=== PATIENT | female | born 1950 | race Caucasian/White ===

== ENCOUNTER 2021-06-17 16:26 | Emergency (ER) | payer BC, MEDICARE, OTHER ==
[2021-06-17 18:01] LABS: ANION GAP 12.8 mmol/L (5-15); CHLORIDE,CL 103 mmol/L (98-107); SODIUM,NA 140 mmol/L (136-145)
== END 2021-06-17 18:53 | disposition home or self-care (01) ==
LOC: KA.ED 16:26
DX: F41.9 Anxiety disorder, unspecified (principal); I10 Essential (primary) hypertension; Z79.82 Long term (current) use of aspirin; Z79.01 Long term (current) use of anticoagulants; Z79.899 Other long term (current) drug therapy
CPT/HCPCS: 36415; 70450; 80053; 81001; 85025; 85610; 99284; 99284-25

== ENCOUNTER 2021-08-18 14:30 | Inpatient (IN) | payer BC, MEDICARE, OTHER ==
[2021-08-18] MEDS ORDERED: Diltiazem 25 MG/5 ML SDV IVPUSH ONE (14:42)
[2021-08-18] MEDS ORDERED: Sodium Chloride 0.9% 1,000 ML IV SCH (14:45)
[2021-08-18 15:13] LABS: ANION GAP 11.7 mmol/L (5-15)
[2021-08-18] MEDS ORDERED: Sodium Chloride 0.9% 10 ML Syringe FLUSH PRN (15:53)
[2021-08-18] MEDS ORDERED: Acetaminophen 325 MG Tab PO PRN (17:45)
[2021-08-18] MEDS ORDERED: Nitroglycerin 0.4 MG Tab.SL SL PRN (18:00)
[2021-08-18] MEDS ORDERED: EPINEPHrine 1:10,000 1 MG/10 ML Syringe IVPUSH PRN (18:00)
[2021-08-18] MEDS ORDERED: Atropine 0.1 MG/ML 10 ML Syringe IVPUSH PRN (18:00)
[2021-08-18] MEDS ORDERED: Lidocaine 2% 100 MG/5 ML Syringe IVPUSH PRN (18:00)
[2021-08-18] MEDS ORDERED: Metoprolol Succinate 25 MG Tab.ER PO SCH (21:00)
[2021-08-18] MEDS ORDERED: Warfarin 5 MG Tab PO SCH (22:00)
[2021-08-18] MEDS ORDERED: Simvastatin 20 MG Tab PO SCH (22:00)
[2021-08-19] MEDS ORDERED: Metoprolol Tartrate 50 MG Tab PO ONE (01:21)
[2021-08-19] MEDS ORDERED: Metoprolol Tartrate 50 MG Tab ONE (01:28)
[2021-08-19] MEDS ORDERED: WARFARIN 5 MG PO SCH ×2 (08:05→22:00)
[2021-08-19] MEDS ORDERED: LISINOPRIL 2.5 MG PO SCH (09:00)
[2021-08-19] MEDS ORDERED: Metoprolol Succinate 50 MG Tab.ER - PTOM PO SCH (09:00)
[2021-08-19] MEDS ORDERED: Non-Formulary Medication 1 Each (Febuxostat [Febuxostat] 40 MG Tablet) PO SCH (09:00)
[2021-08-19] MEDS: Aspirin 81 MG Tab.Chew PO SCH (09:56)
[2021-08-19] MEDS ORDERED: Furosemide 40 MG Tab PO SCH (10:00)
[2021-08-19] MEDS ORDERED: Diltiazem 120 MG Cap.CD PO ONE (10:20)
[2021-08-19] MEDS ORDERED: Furosemide 40 MG/4 ML VIAL IVPUSH ONE (13:50)
[2021-08-19] MEDS ORDERED: Diltiazem 25 MG/5 ML SDV IVPUSH ONE (13:50)
[2021-08-19] MEDS ORDERED: Digoxin 500 MCG/2 ML Amp IVPUSH ONE (14:10)
[2021-08-19] MEDS ORDERED: Warfarin 5 MG Tab PO ONE (18:00)
[2021-08-19] MEDS ORDERED: Warfarin 2.5 MG Tab PO ONE (18:00)
[2021-08-19] MEDS ORDERED: Metoprolol Succinate 25 MG Tab.ER PO SCH (21:00)
[2021-08-19] MEDS ORDERED: Simvastatin 20 MG Tab PO SCH (22:00)
[2021-08-20 07:40] LABS: ANION GAP 9.5 mmol/L (5-15); CHLORIDE,CL 105 mmol/L (98-107); SODIUM,NA 140 mmol/L (136-145)
[2021-08-20] MEDS: Aspirin 81 MG Tab.Chew PO SCH (08:50)
[2021-08-20] MEDS ORDERED: Lisinopril 5 MG Tab PO SCH (09:00)
[2021-08-20] MEDS ORDERED: Metoprolol Succinate 50 MG Tab.ER PO SCH (09:00)
[2021-08-20] MEDS ORDERED: Venlafaxine 37.5 MG Cap.ER PO SCH (09:00)
[2021-08-20] MEDS ORDERED: Digoxin 125 MCG Tab PO ONE (10:15)
[2021-08-20] MEDS ORDERED: Warfarin 2.5 MG Tab PO ONE (18:00)
[2021-08-20] MEDS ORDERED: Digoxin 125 MCG Tab PO SCH (18:00)
[2021-08-20] MEDS ORDERED: WARFARIN 5 MG PO SCH (22:00)
[2021-08-21] MEDS ORDERED: Digoxin 125 MCG Tab PO SCH (18:00)
== END 2021-08-20 10:45 | disposition home or self-care (01) | DRG 309 ==
LOC: KA.ED 14:30 → KA.MS 16:19 → OBSVTOIN 08-19 10:20
PROVIDERS: ADMIT Student in an Organized Health Care Education/Training Program; ATTEND Student in an Organized Health Care Education/Training Program
DX: R42 Dizziness and giddiness (principal); I48.91 Unspecified atrial fibrillation; N17.9 Acute kidney failure, unspecified; I11.0 Hypertensive heart disease with heart failure; Z51.81 Encounter for therapeutic drug level monitoring; R79.89 Other specified abnormal findings of blood chemistry; I50.9 Heart failure, unspecified; Z79.01 Long term (current) use of anticoagulants; Z95.2 Presence of prosthetic heart valve; E78.5 Hyperlipidemia, unspecified; F41.9 Anxiety disorder, unspecified; Z79.899 Other long term (current) drug therapy; M10.9 Gout, unspecified; F32.A Depression, unspecified; Z79.82 Long term (current) use of aspirin; H54.7 Unspecified visual loss; Z28.39 Other underimmunization status; E78.00 Pure hypercholesterolemia, unspecified; K21.9 Gastro-esophageal reflux disease without esophagitis; R32 Unspecified urinary incontinence; G43.909 Migraine, unspecified, not intractable, without status migrainosus; Z86.19 Personal history of other infectious and parasitic diseases; Z86.16 Personal history of COVID-19; Z90.710 Acquired absence of both cervix and uterus; Z98.51 Tubal ligation status; Z20.822 Contact with and (suspected) exposure to COVID-19
CPT/HCPCS: 36415; 71045; 80048; 80053; 83735; 83880; 84484; 85025; 85379; 85610; 93010; 96374; 99284; 99285-25; A9270-GY; G0378; J1160; J3490; J7030; U0002

== ENCOUNTER 2024-09-09 08:34 | Day surgery (SDC) | payer MEDICARE ==
[2024-09-09 09:06] LABS: INR 1.5 (0.9-1.1)
[2024-09-09] MEDS: Sodium Chloride 0.9% 10 ML Syringe FLUSH PRN (09:11)
[2024-09-09] MEDS: Lactated Ringers 1,000 ML IV SCH (09:13)
[2024-09-09] MEDS ORDERED: Propofol 200 MG/20 ML SDV ONE (09:32)
[2024-09-09] MEDS ORDERED: Midazolam 1 MG/ML 2 ML SDV ONE (09:32)
== END 2024-09-09 11:44 | disposition home or self-care (01) ==
LOC: KA.SDS 08:34
PROVIDERS: ATTEND Family Medicine
DX: K51.40 Inflammatory polyps of colon without complications (principal); K59.00 Constipation, unspecified; K57.30 Diverticulosis of large intestine without perforation or abscess without bleeding; I48.19 Other persistent atrial fibrillation; E78.5 Hyperlipidemia, unspecified; I10 Essential (primary) hypertension; Z79.01 Long term (current) use of anticoagulants; Z79.899 Other long term (current) drug therapy; Z79.82 Long term (current) use of aspirin
CPT/HCPCS: 00811; 36416; 85610; 99100; J2250; J2704; J7120

== ENCOUNTER 2024-12-23 17:06 | Emergency (ER) | payer MEDICARE ==
[2024-12-23] MEDS ORDERED: Sodium Chloride 0.9% 10 ML Syringe FLUSH PRN (17:14)
[2024-12-23 17:32] LABS: BASOPHILS ABSOLUTE AUTO 0.04 10^3/uL (0.00-0.10); BASOPHILS PERCENT AUTO 0.6 % (0.0-1.0); EOSINOPHILS ABSOLUTE AUTO 0.10 10^3/uL (0.10-0.30); EOSINOPHILS PERCENT AUTO 1.5 % (1.0-3.0); IMMATURE GRAN ABSOLUTE AUTO 0.01 10^3/uL (0.00-0.04); IMMATURE GRAN PERCENT AUTO 0.1 % (0.0-0.4); LYMPHOCYTES ABSOLUTE AUTO 1.71 10^3/uL (1.00-4.00); LYMPHOCYTES PERCENT AUTO 25.0 % (20.0-40.0); MEAN PLATELET VOLUME 10.0 fL (7.4-10.4); MONOCYTES ABSOLUTE AUTO 0.41 10^3/uL (0.10-0.80); MONOCYTES PERCENT AUTO 6.0 % (2.0-8.0); NEUTROPHILS ABSOLUTE AUTO 4.57 10^3/uL (2.50-7.00); NEUTROPHILS PERCENT AUTO 66.8 % (50.0-70.0); PLATELET COUNT,PLT 225 10^3/uL (150-400); RED BLOOD CELL COUNT 5.26 10^6/uL (3.80-5.50); RED CELL DISTRIBUTION WIDTH 12.7 % (11.5-14.5); WHITE BLOOD CELL COUNT,WBC 6.84 10^3/uL (5.00-10.00)
[2024-12-23 17:49] LABS: ALANINE AMINOTRANSFERASE,ALT 34 U/L (14-63); ASPARTATE AMNIOTRANSFERASE,AST 27 U/L (15-37); BILIRUBIN TOTAL 0.5 mg/dL (0.2-1.0); BLOOD UREA NITROGEN,BUN 14 mg/dL (7-18); CARBON DIOXIDE,CO2 29.6 mmol/L (21.0-32.0); CHLORIDE,CL 102 mmol/L (98-107); CREATININE 0.85 mg/dL (0.51-1.17); GLUCOSE RANDOM 203 mg/dL (70-140); POTASSIUM,K 3.8 mmol/L (3.5-5.1); PROTEIN TOTAL,TP 7.4 g/dL (6.4-8.2); SODIUM,NA 140 mmol/L (136-145)
[2024-12-23 17:50] LABS: ESTIMATED GFR 71 mL/min (>=60)
[2024-12-23 17:58] LABS: PTT,PARTIAL THROMBOPLSTIN TIME 39.7 SEC (21.6-32.4)
[2024-12-23 18:04] LABS: INR 5.9 (0.9-1.1)
[2024-12-23] MEDS: Prochlorperazine 10 MG/2 ML SDV IVPUSH ONE (19:11)
[2024-12-23] MEDS: Acetaminophen/HYDROcodone 325-5 MG Tab PO ONE (19:11)
[2024-12-23] MEDS: Iopamidol 755 Mg/ML 100 ML Bottle IV ONE (20:10)
== END 2024-12-23 21:40 | disposition home or self-care (01) ==
LOC: KA.ED 17:06
DX: R29.898 Other symptoms and signs involving the musculoskeletal system (principal); R79.83 Abnormal findings of blood amino-acid level; K21.9 Gastro-esophageal reflux disease without esophagitis; Z86.16 Personal history of COVID-19; Z95.2 Presence of prosthetic heart valve; Z90.710 Acquired absence of both cervix and uterus; Z91.048 Other nonmedicinal substance allergy status; Z79.82 Long term (current) use of aspirin; Z79.01 Long term (current) use of anticoagulants; Z79.899 Other long term (current) drug therapy
CPT/HCPCS: 70450; 70496; 70498; 80053; 84484; 85025; 85610; 85730; 99284; Q3014; Q9967